=== PATIENT | female | born 1955 | race Two or more races ===

== ENCOUNTER 2025-02-07 11:54 | Emergency (ER) | payer OTHER, MEDICAID ==
[~2025-02-07] VITALS: Ht 167.6 cm; Wt 80.0 kg
--- NOTE | 2025-02-07 12:02 | ED.PDOC ---
[place]id[place]. trauma (HPI) HPI Comments This is a 69 year old female RONNA presenting to the ED with chief complaint of fall. Patient reports that while at [facility] about an hour ago, she had tripped on a pack of efren jars sticking out of one of the aisles, causing her to fall onto her right side. Patient relays that since then she has been experiencing ri ght hip pain with associated right mid back pain, neck pain, and right elbow pain. Patient states that after her fall, she then started to feel dizziness and a frontal headache. Patient denies any numbness, weakness, tingling, LOC, chest pain, SOB, or syncope. 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, Medications, Allergies Allergies: Coded Allergies: NO KNOWN ALLERGIES (Unverified , 02/07/25) Home Meds Active Scripts Hydrocodone-Acetaminophen (Hydrocodone Bitartrate/AC 5-325 mg) 1 Tab Tab, 1 TAB PO Q8HP PRN for 10 Days, #30 TAB Prov:TRACY FOUNTAIN MD 02/07/25 Information Source: Patient, Emergency Med Personnel Mode of Arrival: EMS Severity: Moderate Timing: Hours Duration: Since onset Prehospital treatment: None Location: Back, (R) Elbow, (R) Hip, Neck Mechanism: Fall Past Medical History PAST MEDICAL HISTORY: High Lipids, HTN Surgical History: Hysterectomy, Pacemaker Surgical History (Other): Cataract surgery 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 Family History Family History: Reviewed,noncontributory to illness, Family hx of Cancer, Family hx of stroke Social History Smoker: Non-Smoker Alcohol: Denies ETOH Use Drugs: Denies Drug Use Lives In: Home Constitutional: denies: chills, diaphoresis, fatigue, fever, malaise, sweats, weakness, others EENTM: denies: blurred vision, double vision, ear bleeding, ear discharge, ear drainage, ear pain, ear ringing, eye pain, eye redness, hearing loss, mouth pain, mouth swelling, nasal discharge, nose bleeding, nose congestion, nose pain, photophobia, tearing, throat pain, throat swelling, voice changes, others Respiratory: denies: cough, hemoptysis, orthopnea, SOB at rest, shortness of breath, SOB with excertion, stridor, wheezing, others Cardiovascular: denies: chest pain, dizzy spells, diaphoresis, Dyspnea on exertion, edema, irregular heart beat, left arm pain, lightheadedness, palpitations, PND, syncope, others Gastrointestinal: denies: abdomen distended, abdominal pain, blood streaked bowels, constipated, diarrhea, dysphagia, difficulty swallowing, hematemesis, melena, nausea, poor appetite, poor fluid intake, rectal bleeding, rectal pain, vomiting, others Genitourinary: denies: abnormal vagina bleeding, burning, dyspareunia, dysuria, flank pain, frequency, hematuria, incontinence, pain, , vagina discharge, urgency, others Neurological: reports: headache; denies: dizziness, fainting, left sided numbness, left sided weakness, numbness, paresthesia, pre-existing deficit, right sided numbness, right sided weakness, seizure, speech problems, tingling, tremors, weakness, others Musculoskeletal: reports: back pain, neck pain, others (Rt elbow pain, right hip pain); denies: gout, joint pain, joint swelling, muscle pain, muscle stiffness Integumetry: denies: bruises, change in color, change in hair/nails, dryness, laceration, lesions, lumps, rash, wounds, others Allergic/Immunocompromised: denies: Difficulty Healing, Frequent Infections, Hives, Itching, others Hematologic/Lymphatic: denies: anemia, blood clots, easy bleeding, easy bruising, swollen glands, others Endocrine: denies: excessive hunger, excessive sweating, excessive thirst, excessive urination, flushing, intolerance to cold, intolerance to heat, unexplained weight gain, unexplained weight loss, others Psychiatric: denies: anxiety, bipolar disorder, depression, hopeless, panic disorder, schizophrenia, sleepless, suicidal, others All Other Systems: Reviewed and Negative Physical Exam General Appearance: Moderate Distress HEENT: Normal ENT Inspection, Pharynx Normal, TMs Normal Neck: Full Range of Motion, Non-Tender, Normal, Normal Inspection Respiratory: Chest Non-Tender, Lungs Clear, No Accessory Muscle Use, No Respiratory Distress, Normal Breath Sounds Cardiovascular: No Edema, No JVD, No Murmur, No Gallop, Normal Peripheral Pulses, Regular Rate/Rhythm Breast Exam: Deferred Gastrointestinal: No Organomegaly, Non Tender, No Pulsatile Mass, Normal Bowel Sounds, Soft Genitalia: Deferred Pelvic: Deferred Rectal: Deferred Extremities: No calf tenderness, Normal capillary refill, Normal inspection, Normal range of motion, Non-tender, No pedal edema Musculoskeletal : Location: Right Extremity Location: Elbow Apperance: Limited ROM, Tenderness: Moderate Neurologic: 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 Was a procedure done?: No Differential Diagnosis Multiple Trauma: Fractures, Contusion X-Ray, Labs, Meds, VS Vital Signs Date Time Temp Pulse Resp B/P (MAP) Pulse Ox O2 Delivery O2 Flow Rate FiO2 02/07/25 11:55 98.4 88 16 130/[address] indicates: 1. No CT evidence of an acute intracranial hemorrhage. 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 Right Rib XR indicates: No acute cardiopulmonary disease. No displaced right rib fracture. Right Hip XR indicates: 1. No evidence of acute bony injury. Right Elbow XR indicates: Linear lucency at the lateral epicondyle seen on 1 view only. This may represent a subtle nondisplaced fracture versus artifact. Recommend correlation with point tenderness. Clinical correlation advised. No elbow joint effusion. The patient will be placed in a sling because of the findings on the elbow The patient will return to the emergency department's the condition worsens The patient will follow up with the primary care doctor for a repeat x-ray We have discussed the findings with the patient and they are in agreement with the management The patient was given a prescription of [place] Images Reviewed?: Images reviewed and evaluated by me Time of 1ST Reevaluation: 14:50 Reevaluation 1ST: Unchanged Patient Education/Counseling: Diagnosis, Treatment, Prognosis, Need For Follow Up Family Education/Counseling: No Family Present Departure 1 Departure Time of Disposition: 14:49 Impression: Primary Impression: History of fall Additional Impressions: Contusion of rib on right side Qualified Codes: S29.8XXA - Other specified injuries of thorax, initial encounter Contusion of right hip Qualified Codes: S70.01XA - Contusion of right hip, initial encounter Contusion of right elbow Qualified Codes: S50.01XA - Contusion of right elbow, initial encounter Disposition: 01 HOME / SELF CARE / HOMELESS Condition: Fair e-Prescriptions Hydrocodone-Acetaminophen (Hydrocodone Bitartrate/AC 5-325 mg) 1 Tab Tab 1 TAB PO Q8HP PRN for 10 Days, #30 TAB Prov: TRACY FOUNTAIN MD 02/07/25 Discharged With: Self Critical Care Note Critical Care Time?: No Stability Stability form required: No Heart Score Heart Score: Heart Score Response (Comments) Value History N/A 0 EKG N/A 0 Age N/A 0 Risk Factors N/A 0 Troponin N/A 0 Total 0 I personally scribed for TRACY FOUNTAIN MD ([email or web address]) on 02/07/25 at 12:01. Electronically submitted by Koko Ashley ([email or web address]). I personally scribed for TRACY FOUNTAIN MD ([email or web address]) on 02/07/25 at 14:33. Electronically submitted by Koko Ashley ([email or web address]). TRACY FOUNTAIN MD Feb 07, 2025 12:01
--- NOTE | 2025-02-07 12:36 | DVH ---
EXAM: CT HEAD WITHOUT CONTRAST INDICATION: fall TECHNIQUE: CT images of the head were obtained without administration of IV contrast. CT scans at this facility use dose modulation, iterative reconstruction, and/or weight based dosing when appropriate to reduce radiation dose to as low as reasonably achievable. COMPARISON: None FINDINGS: PARENCHYMA: No acute hemorrhage. There is no mass effect, midline shift, or herniation. There is preservation of the olea white differentiation. Moderate scattered hypoattenuation along the periventricular, centrum semiovale, and deep white matter tracts, which are nonspecific however statistically most likely represent chronic microvascular ischemic change. Age-indeterminate possible lacunar infarction of the left periventricular white matter to left thalamus as well as along the possible external capsule along the left basal ganglia. Overall imaging findings are indeterminate however VENTRICLES: No hydrocephalus. EXTRA-AXIAL SPACES: No extra-axial fluid collections. OTHER: The bony structures are intact. Visualized portions of the paranasal sinuses and mastoid air cells are clear. IMPRESSION: 1. No CT evidence of an acute intracranial hemorrhage. 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
--- NOTE | 2025-02-07 12:53 | DVH ---
CLINICAL INDICATION: fall TECHNIQUE: XY R ELBOW 2V XRAY Comparison: None FINDINGS/IMPRESSION: : Linear lucency at the lateral epicondyle seen on 1 view only. This may represent a subtle nondisplaced fracture versus artifact. Recommend correlation with point tenderness. Clinical correlation advised. No elbow joint effusion.
--- NOTE | 2025-02-07 12:59 | DVH ---
Right hip radiograph CLINICAL INDICATION: trauma TECHNIQUE: 4 views of the right hips hip were obtained. FINDINGS: There is no evidence of fracture, subluxation or dislocation. Moderate right hip osteoarthritis. The bony mineralization is normal.No radiopaque foreign body is identified. IMPRESSION: 1. No evidence of acute bony injury.
--- NOTE | 2025-02-07 13:00 | DVH ---
EXAMINATION: XY R RIB XRAY INDICATION: fall COMPARISON: None TECHNIQUE: Frontal view of the chest and 3 views of the right ribs history FINDINGS: No focal consolidation, pleural effusion or significant pneumothorax. Normal cardiomediastinal silhouette. No displaced right rib fracture. IMPRESSION: No acute cardiopulmonary disease. No displaced right rib fracture.
[2025-02-07] MEDS ORDERED: HYDR-4902 PO (14:52)
[2025-02-07 15:04] VITALS: BP 142/77; PULSE 93; RESP 17; TEMP 98.1
[2025-02-07 15:18] VITALS: O2SAT 97
== END 2025-02-07 15:14 | disposition home or self-care (01) ==
LOC: EDBD 11:54 → ER 11:54
DX: S20.211A Contusion of right front wall of thorax, initial encounter (principal); S50.01XA Contusion of right elbow, initial encounter; S70.01XA Contusion of right hip, initial encounter; I10 Essential (primary) hypertension; Z90.710 Acquired absence of both cervix and uterus; Z91.81 History of falling; Z95.0 Presence of cardiac pacemaker; Z98.49 Cataract extraction status, unspecified eye; W01.0XXA Fall on same level from slipping, tripping and stumbling without subsequent striking against object, initial encounter; X58.XXXA Exposure to other specified factors, initial encounter; Y93.89 Activity, other specified; Y92.512 Supermarket, store or market as the place of occurrence of the external cause; Y99.8 Other external cause status
CPT/HCPCS: 70450; 71101; 73070; 73502